=== PATIENT | female | born 1980 | race Caucasian/White ===

== ENCOUNTER 2020-08-04 10:21 | Outpatient (CLI) | payer OTHER, SELFPAY ==
--- NOTE | ~2020-08-04 | US_ITS ---
EXAMINATION: US right upper quadrant DATE: 08/04/2020 10:49 INDICATION: Abnormal liver function tests. TECHNIQUE: Multiple grayscale and Doppler ultrasound images of the abdomen were obtained. COMPARISON: CT abdomen and pelvis 10/18/2017 FINDINGS: The visualized portions of the head and body of the pancreas are normal. The liver is lulu l without focal lesion. No liver surface nodularity. There is normal flow in main portal vein. The ga llbladder is absent. The common duct is normal and measures 6 mm. IMPRESSION: 1. Normal right upper quadrant status post cholecystectomy. Reviewed, dictated and finalized at location A.
== END 2020-08-04 10:22 | disposition home or self-care (01) ==
LOC: ANHIMG 10:29
PROVIDERS: PCP Nurse Practitioner Family; Visit Provider Nurse Practitioner Family
DX: R74.01 Elevation of levels of liver transaminase levels (principal); Z90.49 Acquired absence of other specified parts of digestive tract
CPT/HCPCS: 76705

== ENCOUNTER 2023-10-15 09:46 | Emergency (ER) | payer OTHER, SELFPAY ==
[2023-10-15 09:55] VITALS: BP 130/84; PULSE 81; RESP 18; TEMP 36.3; O2SAT 98
--- NOTE | 2023-10-15 10:47 | ED.FEMALEGU ---
HPI - Female Genitourinary General Chief complaint: Urogenital-Female Stated complaint: Urinary Problems Time Seen by Provider: 10/15/23 09:58 Source: patient and RN notes reviewed Mode of arrival: ambulatory Limitations: no limitations History of Present Illness HPI Narrative: Patient presents today complaining of a one-week history of urinary frequency, suprapubic pain, and dysuria. She also reports some intermittent dizzy this and diarrhea since yesterday. She had taken some azo, last dose was yesterday. Hysterectomy several years ago. Related Data Home Medications Medication Instructions Recorded Confirmed losartan 100 mg tablet mg 10/15/23 venlafaxine 150 mg mg PO 10/15/23 capsule,extended release 24 hr Allergies Allergy/AdvReac Type Severity Reaction Status Date / Time No Known Allergies Allergy Mild Verified 10/15/23 10:14 Review of Systems Review of Systems: CONSTITUTIONAL: Denies body aches, fever, chills, or sweats. EYES: Denies visual changes, redness, or discharge. ENT: Denies rhinorrhea, congestion, sore throat, or otalgia. CARDIOVASCULAR: Denies chest pain, palpitations, or edema. RESPIRATORY: Denies cough or dyspnea. GASTROINTESTINAL: Denies abdominal pain, nausea, vomiting, or diarrhea. GENITOURINARY: + frequency, dysuria, suprapubic pain SKIN: Denies rash, itching, or wounds. MUSCULOSKELETAL: Denies back pain, joint pain, or myalgia. NEUROLOGIC: Denies headache, numbness, tingling, or weakness. PSYCH: Denies depression or anxiety. [facility] Surgical History Surgical History (Updated 10/15/23 @ 10:48 by Ana Becerra, [facility], ) H/O: hysterectomy Comments At time of signature, I have reviewed and agree with nursing past medical, surgical, social and family history unless otherwise noted. Please see nursing chart for further information. There is no relevant family history pertinent to the presenting complaint Exam Narrative: GENERAL: Well-appearing, well-nourished, and in no acute distress. HEAD: Normocephalic, atraumatic. EYES: EOMI. No redness or drainage. Conjunctivae normal. ENT: Mucous membranes pink and moist. NECK: Normal AROM. CHEST: No respiratory distress. Clear to auscultation. HEART: Regular rate and rhythm. No murmur appreciated. ABDOMEN: Soft, nontender, nondistended, normal active bowel sounds.-CVAT EXTREMITIES: Normal range of motion. No edema. SKIN: Warm, dry, no rash. Capillary refill normal. Normal skin turgor. NEURO: No focal deficits. Alert and oriented x3. Gait steady. PSYCH: Normal affect. No signs of depression or anxiety. Course Course Level of Care: Express Care Visit Vital Signs Vital signs: Vital Signs Temperature 97.4 F L 10/15/23 09:55 Pulse Rate 81 10/15/23 09:55 Respiratory Rate 18 10/15/23 09:55 Blood Pressure 130/84 10/15/23 09:55 Pulse Oximetry 98 10/15/23 09:55 Oxygen Delivery Room Air 10/15/23 09:55 Temperature 97.4 F L 10/15/23 09:55 Pulse Rate 81 10/15/23 09:55 Respiratory Rate 18 10/15/23 09:55 Blood Pressure 130/84 10/15/23 09:55 Pulse Oximetry 98 10/15/23 09:55 Oxygen Delivery Room Air 10/15/23 09:55 Reviewed MDM - Female Genitourinary MDM Narrative Medical decision making narrative: Urinalysis is consistent with UTI. Prescription for Keflex sent to pharmacy. Anticipatory guidance given, including ER precautions Differential Diagnosis Differential diagnosis: Likely urinary tract infection, vaginitis and cystitis Lab Data Attestation: I reviewed the patient's lab results. Labs: Urine Glucose Negative Reference Range: Negative Urine Bilirubin Negative Reference Range: Negative Urine Ketone Negative Reference Range: Negative Urine Specific Hulett 1.025
== END 2023-10-15 10:23 | disposition home or self-care (01) ==
PROVIDERS: Emergency Provider Nurse Practitioner; PCP Nurse Practitioner Family
DX: N39.0 Urinary tract infection, site not specified (principal)
CPT/HCPCS: 81003; 87086; 87088; 99213; G0463

== ENCOUNTER 2024-12-25 14:51 | Emergency (ER) | payer OTHER, SELFPAY ==
--- NOTE | 2024-12-25 14:54 | ED.SKABFB ---
HPI - Skin/Abscess/Foreign Bdy General Chief complaint: Skin/Abscess/Foreign Body Stated complaint: RT Arm Insect Bite Time Seen by Provider: 12/25/24 15:34 Source: patient and RN notes reviewed Mode of arrival: ambulatory Limitations: no limitations History of Present Illness HPI narrative: 44-year-old female presents with concern for a right arm insect sting. Reports 1 week ago she was stung by a wasp on her right upper arm. Reports started to get better but now is red, swollen, extremely itchy and is starting to spread. Reports areas got much larger than was before. She denies any swollen lips, swollen tongue trouble breathing. She denies fever, body aches, chills, sweats. She has taken and histamines and using hydrocortisone cream without relief MD complaint: insect bite/sting Related Data Home Medications ?Medication ?Instructions ?Recorded ?Confirmed ?Last Taken ?Type losartan 100 mg tablet mg 10/15/23 Unknown History venlafaxine 150 mg mg PO 10/15/23 Unknown History capsule,extended release 24 hr Review of Systems Review of Systems: CONSTITUTIONAL: Denies malaise, chills, sweats, or fever. EYES: Denies redness, or discharge. ENT: Denies rhinorrhea, congestion, swollen lips, swollen tongue CARDIOVASCULAR: Denies chest pain, palpitations, or edema. RESPIRATORY: Denies cough or dyspnea. GASTROINTESTINAL: Denies abdominal pain, nausea, vomiting SKIN: Reports red, warm, swollen area on her right upper arm MUSCULOSKELETAL: Denies joint pain or myalgia. NEUROLOGIC: Denies headache. All systems reviewed & are unremarkable except as noted in HPI and below PMFSH Surgical History Surgical History (Updated 10/15/23 @ 10:48 by Ana Becerra, [facility], ) H/O: hysterectomy Comments At time of signature, agree with nursing past medical, surgical, social and family history. There is no relevant family history pertinent to the presenting complaint Exam Narrative: GENERAL: Well-appearing, well-nourished, and in no acute distress. HEAD: Normocephalic, atraumatic. EYES: PERRLA, conjunctivae clear, and EOMI. ENT: Mucous membranes moist. NECK: Supple. No lymphadenopathy CHEST: Clear to auscultation. No respiratory distress. HEART: Regular rate and rhythm. SKIN: Warm, dry. Approximately 15 cm x 10 cm area of erythema, warmth, swelling noted to the right upper arm surrounding the sting site NEURO: Alert and oriented x3. PSYCH: Normal mood and affect Course Course Emergency Course: Patient is aware of diagnosis, understands and agrees to treatment plan. Anticipatory guidance given. Patient agrees to follow-up as directed and is aware of reasons to seek care at the emergency department. Portions of this record may have been created with voice recognition software Level of Care: Express Care Visit Vital Signs Vital signs: Reviewed. MDM - Skin/Abscess/Foreign Bdy MDM Narrative Medical decision making narrative: Does not appear at this time to be erythema multiforme, bullous, SJS, TEN; no evidence at this time to suggest RMSF, endocarditis or Lyme disease; patient looks well, nontoxic and is tolerating oral intake; no neurologic signs or symptoms; no headache, photophobia or neck pain; afebrile; appropriate for initial outpatient treatment; discussed the importance of follow-up, patient agrees; question, viral exanthema, contact dermatitis, allergic dermatitis, eczema, urticaria, cellulitis. No soft palate or uvula edema, no tongue, lip edema or other mucosal involvement, no respiratory compromise, no stridor, no wheezing, no wheezing, no history of syncope, no hypotension, no nausea, vomiting, or diarrhea. Instructed patient to go to nearest ER immediately for any worsening symptoms including but not limited to: fever, spreading rash, pain, sore throat, headache, dizziness, chest pain, trouble breathing, or any symptoms concerning to the patient. Critical Care Time Critical Care Time Critical Care Time: No Discharge Plan Discharge Clinical Impression: Insect bite of upper extremity with infection Patient Disposition: Home Condition: Stable Instructions: Antibiotic Form, Cellulitis (ED) Additional Instructions: Please follow up with your Primary Care Doctor within 48-72 hours - call for an appointment. Rest and elevate affected area. Take Motrin 600mg every 8 hours with food for pain. Please take Antibiotics as directed. If you experience any worsening redness, swelling, streaking (red lines), fever or chills please go to the ER Patient Language: Bulgarian Prescriptions: New cephalexin 500 mg capsule 500 mg PO QID 10 Days Qty: 40 0RF methylprednisolone [Medrol (Vini)] 4 mg tablets,dose pack See Rx Instructions .ROUTE .COMPLEX Qty: 21 0RF Rx Instructions: orally per package directions No Action venlafaxine 150 mg capsule,extended release 24hr PO losartan 100 mg tablet Follow-up/Referrals: Awa Eli APRN [Primary Care Provider] - Time of Disposition: 15:42
--- OUTSIDE RECORDS SUMMARY | 2024-12-25 14:54 | XMS_ITS | Clinical Summary ---
Author Organization [facility] Address [address] [place] [address] Care Team Providers Care Kaiako Kura Tuarua Name Role Phone Sreedhar Awa Murdock APRN-PHOTORADIO OPERATOR Primary Care Provider Source Comments [facility],non-owned Affiliates and Associated Physician Practices is amultiple site organization consisting of ambulatory clinics and hospital sitesin [place], [place], [place] and [place]. This disclosure is being madepursuant to the Care Everywhere program and may not contain all information available regarding this patient. Last updated 18.[facility] Allergies Active Allergy Reactions Criticality Noted Date Comments Hydrocodone-Acetaminophen Itching Hydrocodone-Guaifenesin Nausea and/or Vomiting Low 01/15/2015 Medications * Be aware that medications may not be up to date on this document. Alwaysverify current medications with the patient. ALPRAZolam (XANAX) 0.25 MG tablet TK ONE T PO BID PRN 0 8 Active ketoconazole (NIZORAL) 2 % shampoo Apply to wet hair, leave on for 3 minutes, then rinse; three times weekly. 30 days supply 7 Active ISOtretinoin 40 MG capsuleIndicatio ns:Acne vulgaris Take 2 capsules by mouth once daily 60 capsule 8 Active vitamin D, ergocalciferol, (DRISDOL) 79741 UNITS capsuleIndicatio ns:Vitamin D Deficiency Take 1 capsule by mouth every 7 days Reasons: Vitamin D Deficiency 4 capsule 3 8 Active ferrous sulfate 325 (65 FE) MG tabletIndication s:Restless Leg Syndrome Take 1 tablet by mouth 2 times daily Reasons: Restless Leg Syndrome 60 tablet 8 Active diclofenac sodium EC (VOLTAREN) 75 MG tabletIndication s:Vitamin D deficiency,Low ferritin,Aching pain,Arthralgia, unspecified joint Take 1 tablet by mouth 2 times daily 60 tablet 5 8 Active tazarotene (FABIOR) 0.1 % foamIndications: Acne vulgaris Apply a sampson sized amount to entire face at night 1 can 8 Active Active Problems Problem Noted Date Diagnosed Date Other specified dermatitis 11/06/2017 Elevated liver enzymes 07/27/2017 Cheilitis 05/10/2017 Irritability and anger 05/10/2017 Other headache syndrome 05/10/2017 Medication monitoring encounter 2017 Lipoma of forehead 04/05/2017 Acne vulgaris 05/02/2015 Other seborrheic dermatitis 05/02/2015 Immunizations Immunization Administration Dates Next Due TDAP (7yrs+) 07/16/2014 Family History Medical History Relation Name Comments Diabetes - Type 2 Father Cancer - Other Maternal Grandfather Cancer - Breast Maternal Grandmother Arthritis - Rheumatoid Sister 1 Arthritis - Rheumatoid Sister 2 Asthma Neg Hx CVA Neg Hx Cancer - Skin, Melanoma Neg Hx Cancer - Skin, Non Melanoma Neg Hx Celiac Disease Neg Hx Crohn's Disease Neg Hx Eczema Neg Hx Hemophilia Neg Hx Lupus Neg Hx Psoriasis Neg Hx Ulcerative Colitis Neg Hx Relation Name Status Comments Father Maternal Grandfather Maternal Grandmother Sister 1 Sister 2 Social History Tobacco Use Types Packs/Day Years Used Date Smoking Tobacco: Former Cigarettes 0 11/25/2000 - 11/25/2016 Smokeless Tobacco: Never Alcohol Use Standard Drinks/Week Comments Yes 6 (1 standard drink = 0.6 oz pur e alcohol) Comments Unknown Sex and Gender Information Value Date Recorded Sex Assigned at Not on file Legal Sex Female 12:27 PM CDT Gender Identity Not on file Sexual Orientation Not on file Last Filed Vital Signs Vital Sign Reading Time Taken Comments Blood Pressure 128/80 11/30/2017 2:53 PM CDT Pulse 81 11/30/2017 2:53 PM CDT Temperature 36.9 C (98.5 F) 11/30/2017 2:53 PM CDT Respiratory Rate - - Oxygen Saturation 98% 11/30/2017 2:53 PM CDT Inhaled Oxygen Concentration - - Weight 88 kg (194 lb) 11/30/2017 2:53 PM CDT Height 182.9 cm (6') 11/30/2017 2:53 PM CDT Body Mass Index 26.31 11/30/2017 2:53 PM CDT Plan of Treatment Health Maintenance Due Date Last Done Comments MAMMOGRAM 1982 HIV SCREENING 1997 HEPATITIS B VACCINE (1 of 3 - 19+ 3-dose series) 2001 HPV VACCINE (1 - 3-dose SCDM series) 2009 LIPID TESTING 09/02/2022 09/02/2017, 03/0 09/2017, 06/15/2017, Additional history exists COVID-19 VACCINE (2023- season) 2024 DEPRESSION SCREENING 05/23/2024 DTAP/TDAP/TD VACCINES (2 - Td or Tdap) 07/16/2024 07/16/2014 INFLUENZA VACCINE (#1) 2025 ZOSTER VACCINE (1 of 2) 2032 HEPATITIS C SCREENING Completed 01/24/2015 HIB VACCINE Aged Out No longer eligi ble based on patient's age to complete this topic MENINGOCOCCAL (Group B) VACCINE SHARED DECISION-MAKING Aged Out No longer eligible based on patient's age to complete this topic MENINGOCOCCAL GROUPS A/C/Y/W VACCINE Aged Out No longer eligible based on patient's age to complete this topic PNEUMOCOCCAL VACCINE Aged Out No long er eligible based on patient's age to complete this topic Procedures Procedure Name Priority Date/Time Associated Diagnosis Comments LIPID PROFILE 09/02/2017 9:39 AM CDT HEPATITIS C ANTIBODY Routine 01/24/2015 11:30 AM CDT from Last 3 Months or Most Recently Relevant to Health Maintenance Results * (ABNORMAL) LIPID PROFILE (09/02/2017 9:39 AM CDT) Cholesterol 215(H) <200 mg/dL [facility] HDL Cholesterol 58 >50 mg/dL [facility] Triglycerides 92 <150 mg/dL [facility] LDL Calculated 137(H) mg/dL (calc) [facility] Comment: Reference range: <100 Desirable range <100 mg/dL for primary prevention; <70 mg/dL for patients with CHD or diabetic patients with > or = 2 CHD risk factors. LDL-C is now calculated using the Asa calculation, which is a validated novel method providing better accuracy than the Friedewald equation in the estimation of LDL-C. Castro SS et al. MIKE. 2013;310(19): 9078-3867 (http://education.FriendsEAT/faq/SAJ396) CHOL/HDLC RATIO 3.7 <5.0 (calc) [facility] Non HDL Cholesterol 157(H) <130 mg/dL (calc) [facility] Comment: For patients with diabetes plus 1 major ASCVD risk factor, treating to a non-HDL-C goal of <100 mg/dL (LDL-C of <70 mg/dL) is considered a therapeutic option. Test Performed at: [facility] [id number] ANDREY TURPIN DO,MPH 09/02/2017 9:39 AM CDT 09/02/2017 9:40 AM CDT Marcio Velasco MD LAB - CHEMISTRY ORDERABLES Danielle l Result Performing Organization Address [facility] de Phone Number [facility] [address] [place] [address] * HEPATITIS C ANTIBODY (01/24/2015 11:30 AM CDT) Hepatitis C Antibody NON-REACTI VE NON-REACT SHAILESH [facility] ([facility]) Signal/Cutoff 0.02 <1.00 [facility] ([facility]) Comment: Test Performed at: [place] [id number] ANDREY TURPIN DO,MPH Blood specimen (specimen) BLOOD SPECIMEN / Unknown 01/24/2015 11:30 AM CDT 01/24/2015 11:30 AM CDT Ignacia Daniel MD LAB - CHEMISTRY OR DERABLES Edited Result - Final Performing Organization Address [facility] Co de Phone Number [facility] ([facility]) [address] from Last 3 Months or Most Recently Relevant to Health Maintenance Insurance [facility] MEDICAID - OUT OF STATE MEDICAID - OUT OF STATE Care Teams Kaiako Kura Tuarua Relationship Specialty Start Date End Date Awa Eli APRN-PHOTORADIO OPERATOR [address] [place] [phone] PCP - General 11/23/17
--- OUTSIDE RECORDS SUMMARY | 2024-12-25 14:54 | XMS_ITS | Clinical Summary ---
Author Organization [facility] Address [address] [place] [address] Care Team Providers Care Shirt Operator Name Role Phone Kady Eli [facility] Primary Care Provider + Allergies Active Allergy Reactions Criticality Noted Date Comments Hydrocodone Hives 08/06/2022 Hives, rash, face and chest gets red, and she gets very dizzy Medications No known medications Family History Medical History Relation Comments Depression Brother Arthritis Father Cancer Father Depression Father Diabetes Father Heart Disease Father Hypertension Father Thyroid Disease Father Arthritis Maternal Grandfather Depression Maternal Grandfather Depression Maternal Grandmother Stroke Maternal Grandmother Arthritis Mother Depression Mother Arthritis Paternal Grandfather Depression Paternal Grandfather Arthritis Sister Asthma Sister Depression Sister Diabetes Sister Relation Status Comments Brother Father Maternal Grandfather Maternal Grandmother Mother Paternal Grandfather Sister Social History Tobacco Use Types Packs/Day Years Used Date Smoking Tobacco: Former Cigarettes Q uit: 11/2016 Smokeless Tobacco: Never Tobacco Cessation:Counseling Given: Not Answered Alcohol Use Standard Drinks/Week Comments Yes 0 (1 standard drink = 0.6 oz pur e alcohol) Comments No Sex and Gender Information Value Date Recorded Sex Assigned at Not on file Legal Sex Female 3:48 PM RETAIL PRODUCT DEMO SPECIALIST Gender Identity Not on file Sexual Orientation Not on file Last Filed Vital Signs Vital Sign Reading Time Taken Comments Blood Pressure 145/81 08/06/2022 2:20 PM CDT Pulse 78 08/06/2022 9:51 AM CDT Temperature 36.2 C (97.2 F) 08/06/2022 9:51 AM CDT Respiratory Rate 18 08/06/2022 9:51 AM CDT Oxygen Saturation 97% 08/06/2022 2:20 PM CDT Inhaled Oxygen Concentration - - Weight 113.4 kg (250 lb) 08/06/2022 9:51 AM CDT Height 182.9 cm (6') 08/06/2022 9:51 AM CDT Body Mass Index 33.91 08/06/2022 9:51 AM CDT Plan of Treatment Health Maintenance Due Date Last Done Comments Annual Physical 1985 Hepatitis C 2000 Hepatitis B Vaccines (1 of 3 - 19+ 3-dose series) 2001 HPV Vaccines (1 - 3-dose SCD M series) 2009 COVID-19 Vaccine ( - 2023-2 5 season) 2024 Mammogram Screening 06/09/2024 06/09/2022 DTaP, Tdap and Td Vaccines ( 2 - Td or Tdap) 07/16/2024 07/16/2014 Meningococcal B Vaccine Aged Out No l onger eligible based on patient's age to complete this topic Meningococcal Vaccine Aged Out No esme jaden eligible based on patient's age to complete this topic Pneumococcal Vaccine: Pediat rics (0 to 5 Years) and At-Risk Patients (6 to 49 Years) Aged Out No longer eligi ble based on patient's age to complete this topic RSV Immunizations Under 20 Months Aged Out No longer eligible based on patient's age to complete this topic Procedures Procedure Name Priority Date/Time Associated Diagnosis Comments MG SCREENING W DESTINY JOSE EDUARDO DIGI Routine 06/09/2022 3:06 PM RETAIL PRODUCT DEMO SPECIALIST Encounter for screening mammogram for malignant neoplasm of breast from Last 3 Months or Most Recently Relevant to Health Maintenance Results * MG SCREENING W DESTINY JOSE EDUARDO DIGI (06/09/2022 3:06 PM RETAIL PRODUCT DEMO SPECIALIST) Anatomical Region Laterality Modality Breast Bilateral Mammography 06/10/2022 4:19 PM RETAIL PRODUCT DEMO SPECIALIST Narrative 06/10/2022 4:23 PM RETAIL PRODUCT DEMO SPECIALIST IMAGING STUDIES: Bilateral screening mammograms with computer-aided detection with 2-D and 3-D imaging. Tomosynthesis. DATE: 06/09/2022 2:30 PM HISTORY: Encounter for screening mammogram for malignant neoplasm of breast . COMPARISON: Baseline exam TISSUE TYPE: There are scattered areas of fibroglandular density. FINDINGS: 1. Mild scattered fibroglandular tissue pattern is present. 9 nodularity 2. No malignant microcalfcifications, new dominant masses, or architectural distortion. 3. No skin thickening or nipple retraction. Axillary regions are within normal limits. IMPRESSION: 1. No mammographic evidence of malignancy. 2. Assessment: ACR BI-RADS 1 - NEGATIVE 3 .Routine Screening Bilateral MQSA BI-RADS Categories: Category 0 - needs additional imaging evaluation. Category 1 - negative. Category 2 - benign findings. Category 3 - probably benign findings, but short interval follow-up is recommended. Category 4 - suspicious abnormality and biopsy should be considered though the lesion may well be benign. Category 5 - highly suggestive of malignancy and appropriate action should be taken. Category 6 - known biopsy-proven malignancy A) A negative report should not delay a biopsy if a dominant or clinically suspicious mass is present. B) Adenosis and dense breasts may obscure an underlying neoplasm. C) Study interpreted with computer aided detection. Ordered By: KADY ELI Interpreted By: Angel Morales, 06/10/2022 4:19 PM Kady Eli LOFT PATTERNMAKER-BC MAMMO Final Re sult from Last 3 Months or Most Recently Relevant to Health Maintenance Insurance R Care Teams Shirt Operator Relationship Specialty Start Date End Date Kady Eli, LOFT PATTERNMAKER-BC [address] [place] [address] PCP - General NURSE PRACTITIONER 06/09/22
--- OUTSIDE RECORDS SUMMARY | 2024-12-25 14:54 | XMS_ITS | Patient Health Record ---
Author Organization [facility] Address [address] [facility] [address] [place] [address] Care Team Providers Care Patents Examiner Name Role Phone Tana Grider Unavailable [phone] Reason For Referral No Information Plan Of Treatment No Information Insurance Providers Payer Name Payer Address Payer Phone Subscriber Number Group Number Insured Name Patient Relationship to Insured Coverage Start Date Coverage End Date Umr [address] [address] [place] [address] [phone] [id number] VISHNU MOE Spouse - patient is the spouse of the insured Medicaid-I l Medicaid [address] [address] [place] [address] [id number] ALYSSA MOE Self - patient is the insured
[2024-12-25 15:05] VITALS: BP 130/85; PULSE 79; RESP 16; TEMP 36.6; O2SAT 100
== END 2024-12-25 15:45 | disposition home or self-care (01) ==
PROVIDERS: Emergency Provider Nurse Practitioner; PCP Nurse Practitioner Family
DX: T63.461A Toxic effect of venom of wasps, accidental (unintentional), initial encounter (principal); L08.9 Local infection of the skin and subcutaneous tissue, unspecified
CPT/HCPCS: 99213; G0463

== ENCOUNTER 2025-03-05 13:50 | Emergency (ER) | payer OTHER, SELFPAY ==
[2025-03-05 13:56] VITALS: BP 138/83; PULSE 80; RESP 18; TEMP 36.2; O2SAT 100
--- NOTE | 2025-03-05 14:06 | ED_ITS ---
HPI - Female Genitourinary General Chief complaint: Urogenital-Female Stated complaint: UTI Time Seen by Provider: 03/05/25 14:06 Source: patient, RN notes reviewed and old records reviewed Mode of arrival: ambulatory Limitations: no limitations History of Present Illness HPI Narrative: 44-year-old female presents to the [facility] with burning, frequency and urgency with urination since Tuesday, 2 days. Patient reports taking Urostat this morning. Denies fevers, nausea, vomiting, diarrhea. Denies chest pain. No CVA tenderness. Patient has a history of hysterectomy. Reports suprapubic pressure but denies significant pain. Onset (ago): day(s) (2) Related Data Home Medications ?Medication ?Instructions ?Recorded ?Confirmed ?Last Taken ?Type losartan 100 mg tablet mg 10/15/23 Unknown History venlafaxine 150 mg mg PO 10/15/23 Unknown Hist ory capsule,extended release 24 hr metformin 500 mg tablet,extended mg PO 03/05/25 Unkno wn History release 24 hr omeprazole 40 mg capsule,delayed mg 03/05/25 Unknown History release Allergies Allergy/AdvReac Type Severity Reaction Status Date / Time acetaminophen (From Vicodin) AdvReac Intermediate Nausea and Verified 03/05/25 14:02 Vomiting hydrocodone (From Vicodin) AdvReac Intermediate Nausea and Verified 03/05/25 14:02 Vomiting Review of Systems Review of Systems: All systems reviewed & are unremarkable except as noted in HPI and below Constitutional: Constitutional: Reports no additional constitutional complaints Cardiovascular: Cardiovascular: Reports no additional cardiovascular complaints, Denies chest pain and Denies dyspnea Respiratory: Respiratory: Reports no additional respiratory complaints, Denies chest congestion, Denies cough and Denies dyspnea Gastrointestinal: Gastrointestinal: Reports as per HPI Genitourinary: Genitourinary: Reports as per HPI Musculoskeletal: Musculoskeletal: Reports no additional musculoskeletal complaints Integumentary/Breasts: Skin/Breast: Reports system reviewed and no additional complaints, except as docu [facility] Surgical History Surgical History H/O: hysterectomy Comments At the time of my signature, I reviewed and agree with the nursing past medical, surgical, social, and family history. There is no relevant family history pertinent to the patient complaint. Exam Const: General: cooperative, healthy appearing, comfortable, no acute distress, well developed, alert and well nourished Nutritional Appearance: well nourished Orientation/consciousness: patient oriented x3 Limitations: no limitations HENMT: Head: normal to inspection Mouth: Yes Normal oral and palatal mucosa present, Yes lip normal, Yes tongue normal and Yes moist mucous membranes Eyes: General: appearance normal, both eyes and all related structures Alignment and Position: alignment normal Neck: Neck: normal visual inspection, full ROM, no lymphadenopathy and no meningeal signs Chest: Chest palpation & inspection: normal inspection of the chest Resp: Effort & Inspection: normal respiratory effort and able to speak in complete sentences Auscultation: clear to auscultation bilaterally, no crackles, no rales, no rhonchi and no wheezes Cardio: Rate: regular rate GI: GI Palp: No abdominal tenderness : General: Yes no CVA tenderness Skin: General skin exam: normal color and no rashes or lesions noted Neuro: General: patient oriented x3, gait normal, moves all extremities and no meningeal signs Cognition (Neuro): normal cognition Speech: normal speech Gait exam (Neuro): Normal gait present Extrem: General: normal to inspection, full ROM, capillary refill normal and normal gait Psych: Appearance: grossly normal and well kempt Mental Status: mental status grossly normal Speech and movement: Normal speech and movement present and Clear speech present Affect: normal affect Attitude: cooperative Course Course Level of Care: Express Care Visit Vital Signs Vital signs: Vital Signs Temperature 97.2 F L 03/05/25 13:56 Pulse Rate 80 03/05/25 13:56 Respiratory Rate 18 03/05/25 13:56 Blood Pressure 138/83 03/05/25 13:56 Pulse Oximetry 100 03/05/25 13:56 Oxygen Delivery Room Air 03/05/25 13:56 Temperature 97.2 F L 03/05/25 13:56 Pulse Rate 80 03/05/25 13:56 Respiratory Rate 18 03/05/25 13:56 Blood Pressure 138/83 03/05/25 13:56 Pulse Oximetry 100 03/05/25 13:56 Oxygen Delivery Room Air 03/05/25 13:56 Reviewed MDM - Female Genitourinary MDM Narrative Medical decision making narrative: Patient sitting in exam room. Patient is nontoxic, vitals stable. Patient presents with burning frequency and urgency with urination. Unable to do urine dip but will culture due to using Urostat. Patient placed on Keflex, culture sent Patient appropriate for outpatient treatment with close follow-up Discharge instructions reviewed with patient, as well as provided in writing per nursing staff. The instructions also include specific and strict return/GO TO THE ER as well as f/u information. All questions have been answered, and the patient deny any further questions with discharge and discharge plan. Some parts of this dictation were generated by voice recognition software and may contain typographical and/or grammatical inaccuracies. Differential Diagnosis Differential diagnosis: Likely urinary tract infection and cystitis Critical Care Time Critical Care Time Critical Care Time: No Discharge Plan Discharge Clinical Impression: Dysuria Patient Disposition: Home Condition: Stable Instructions: Antibiotic Form, Dysuria (ED) Additional Instructions: Increased water intake Take Tylenol as needed for pain Take antibiotic as prescribed You have been prescribed an antibiotic. Your urine will be sent to our lab for a culture. If at that time a bacteria grows that is not covered by the antibiotic prescribed you will be notified. Follow-up with primary care For new or worsening symptoms go directly to the emergency room Patient Language: Nepali Prescriptions: New cephalexin 500 mg capsule 500 mg PO Q12H Qty: 10 0RF No Action venlafaxine 150 mg capsule,extended release 24hr PO losartan 100 mg tablet omeprazole 40 mg capsule,delayed release(DR/EC) metformin 500 mg tablet extended release 24 hr PO Follow-up/Referrals: Oliver,MD Uziel [Primary Care Provider, Unknown] - 1 Week Stand Alone Forms: Work/School Release IP Time of Disposition: 14:15
--- OUTSIDE RECORDS SUMMARY | 2025-03-05 15:47 | XMS_ITS | Patient Health Record ---
Author Organization [facility] [employer] Address [address] [facility] [address] [place] [address] Care Team Providers Care Automotive Services Manager Name Role Phone Tana Grider Unavailable [phone] Reason For Referral No Information Plan Of Treatment No Information Insurance Providers Payer Name Payer Address Payer Phone Subscriber Number Group Number Insured Name Patient Relationship to Insured Coverage Start Date Coverage End Date Umr [address] [address] [place] [address] [phone] [id number] VISHNU MOE Spouse - patient is the spouse of the insured Medicaid-[place] l Medicaid [address] [address] [place] [address] [id number] ALYSSA MOE Self - patient is the insured
--- OUTSIDE RECORDS SUMMARY | 2025-03-05 15:47 | XMS_ITS | Clinical Summary ---
Author Organization [facility] Address [address] [place] [id number] Care Team Providers Care Room Service Attendant Name Role Phone Kady Eli [facility] Primary Care Provider + Allergies Active [...] on file Legal Sex Female 3:48 PM INDUSTRIAL RELATIONS COUNSELOR Gender Identity Not on file Sexual Orientation [...] (1 - 3-dose SCD M series) 2009 Mammogram Screening 06/09/2024 06/09/2022 DTaP, Tdap and Td Vaccines ( 2 - Td or Tdap) 07/16/2024 07/16/2014 COVID-19 Vaccine (2023-2 5 season) 2025 Influenza Adult (#1) 2025 03/07/2019, 03/03/2017 Hepatitis A Vaccines Aged Out No long er eligible based on patient's age to complete this topic Meningococcal B Vaccine Aged Out No l onger eligible based on patient's age to complete this topic Meningococcal Vaccine Aged Out No esme jaden eligible based on patient's age to complete this topic Pneumococcal Vaccine: Pediatrics (0 to 5 Years) and At-Risk Patients (6 to 49 Years) Aged Out No longer eligible b ased on patient's age to complete this topic RSV Immunizations Under 20 Months Aged Out No longer eligible b ased on patient's age to complete this topic Procedures Procedure Name Priority Date/Time Associated Diagnosis Comments MG SCREENING W DESTINY JOSE EDUARDO DIGI Routine 06/09/2022 3:06 PM INDUSTRIAL RELATIONS COUNSELOR Encounter for screening mammogram for malignant neoplasm of breast from Last 3 Months or Most Recently Relevant to Health Maintenance Results * MG SCREENING W DESTINY JOSE EDUARDO DIGI (06/09/2022 3:06 PM INDUSTRIAL RELATIONS COUNSELOR) Anatomical Region Laterality Modality Breast Bilateral Mammography 06/10/2022 4:19 PM INDUSTRIAL RELATIONS COUNSELOR Narrative 06/10/2022 4:23 PM INDUSTRIAL RELATIONS COUNSELOR IMAGING STUDIES: Bilateral screening mammograms with computer-aided [...] Angel Morales, 06/10/2022 4:19 PM Kady Eli METAL SPONGE MAKING MACHINE OPERATOR-BC MAMMO Final Re sult from Last 3 Months or Most Recently Relevant to Health Maintenance Insurance R Care Teams Room Service Attendant Relationship Specialty Start Date End Date Kady Eli, METAL SPONGE MAKING MACHINE OPERATOR- [address] [phone] PCP - General NURSE PRACTITIONER 06/09/22
--- OUTSIDE RECORDS SUMMARY | 2025-03-05 15:47 | XMS_ITS | Clinical Summary ---
Author Organization [facility] [employer] Address [address] [place] [address] Care Team Providers Care Corporate Specialist Name Role Phone Sreedhar Awa Murdock APRN-DIETARY MANAGER Primary Care Provider Source Comments [facility],non-owned Affiliates and Associated Physician Practices is amultiple site organization consisting of ambulatory clinics and hospital sitesin [place], [place], [place] and [place]. This disclosure is being madepursuant to the Care Everywhere program and may not contain all information available regarding this patient. Last updated 18.[facility] Allergies Active Allergy Reactions Criticality Noted Date [...] capsule 8 Active vitamin D, ergocalciferol, (DRISDOL) 38657 UNITS capsuleIndicatio ns:Vitamin D Deficiency Take 1 [...] 09/02/2017, 03/0 09/2017, 06/15/2017, Additional history exists DEPRESSION SCREENING 05/23/2024 DTAP/TDAP/TD VACCINES (2 - Td or Tdap) 07/16/2024 07/16/2014 COVID-19 VACCINE ( - season) 2025 INFLUENZA VACCINE (#1) 2025 ZOSTER VACCINE (1 [...] LDL-C. Castro SS et al. MIKE. 2013;310(19): 1324-9914 (http://education.revoPT/faq/OBG942) CHOL/HDLC RATIO 3.7 <5.0 (calc) [facility] Non HDL Cholesterol 157(H) <130 mg/dL (calc) [facility] Comment: For patients with diabetes plus 1 major ASCVD risk factor, treating to a non-HDL-C goal of <100 mg/dL (LDL-C of <70 mg/dL) is considered a therapeutic option. Test Performed at: [facility] [id number] ANDREY TURPIN DO,MPH 09/02/2017 9:39 AM CDT 09/02/2017 9:40 AM CDT Marcio Velasco MD LAB - CHEMISTRY ORDERABLES Danielle l Result Performing Organization Address [facility] de Phone Number [facility] [phone] [place] [address] * HEPATITIS C ANTIBODY (01/24/2015 11:30 AM CDT) Hepatitis C Antibody NON-REACTI VE NON-REACT SHAILESH [facility] ([facility]) Signal/Cutoff 0.02 <1.00 [facility] ([facility]) Comment: Test Performed at: [facility] [id number] ANDREY TURPIN DO,MPH Blood specimen (specimen) BLOOD SPECIMEN / Unknown 01/24/2015 11:30 AM CDT 01/24/2015 11:30 AM CDT Ignacia Daniel MD LAB - CHEMISTRY OR DERABLES Edited Result - Final Performing Organization Address [facility] Co de Phone Number [facility] ([facility]) [phone] from Last 3 Months or Most Recently Relevant to Health Maintenance Insurance [facility] MEDICAID - OUT OF STATE MEDICAID - OUT OF STATE Care Teams Corporate Specialist Relationship Specialty Start Date End Date Awa Eli APRN-DIETARY MANAGER [address] [place] [phone] PCP - General 11/23/17
== END 2025-03-05 14:17 | disposition home or self-care (01) ==
PROVIDERS: Emergency Provider Nurse Practitioner; PCP Family Medicine
DX: N39.0 Urinary tract infection, site not specified (principal)
CPT/HCPCS: 87077; 87086; 87186; 99213; G0463